=== PATIENT | female | born 1995 | race Caucasian/White ===

== ENCOUNTER → 2020-07-23 11:12 | Outpatient (BNVA) | payer SELFPAY | PROVIDERS: Visit Provider Family Medicine | DX: R53.83 Other fatigue (principal) | CPT/HCPCS: 80053; 83036; 84443; 85025 ==

== ENCOUNTER → 2021-12-17 08:21 | Outpatient (BNVA) | payer OTHER, SELFPAY | PROVIDERS: PCP Nurse Practitioner Family; Visit Provider Obstetrics & Gynecology | DX: Z32.01 Encounter for pregnancy test, result positive (principal) | CPT/HCPCS: 84702 ==

== ENCOUNTER → 2022-03-12 11:37 | Outpatient (BNVA) | payer OTHER, SELFPAY | PROVIDERS: Visit Provider Physician Assistant | DX: M54.6 Pain in thoracic spine; M54.2 Cervicalgia | CPT/HCPCS: 72050; 72070 ==

== ENCOUNTER → 2022-03-24 15:02 | Outpatient (BNVA) | payer OTHER, SELFPAY | PROVIDERS: PCP Nurse Practitioner; Visit Provider Nurse Practitioner | DX: Z20.822 Contact with and (suspected) exposure to COVID-19 (principal); U07.1 COVID-19 | CPT/HCPCS: 87426 ==

== ENCOUNTER 2024-07-20 20:32 | Emergency (ER) | payer OTHER, SELFPAY ==
[2024-07-20 20:36] VITALS: BP 123/92; PULSE 87; RESP 20; TEMP 36.7; O2SAT 98; BMI 37.8
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
[2024-07-20] MEDS: ketorolac 60 mg/2 mL INJ IM (22:25)
[2024-07-20 22:27] VITALS: BP 124/101; PULSE 74; RESP 18; O2SAT 98
[2024-07-20] MEDS: TRAMadol 50 mg Tablet 100 MG PO (22:30)
== END 2024-07-20 22:36 | disposition home or self-care (01) ==
PROVIDERS: Emergency Provider Emergency Medicine; PCP Nurse Practitioner
DX: Z04.1 Encounter for examination and observation following transport accident (principal); M79.18 Myalgia, other site; M79.642 Pain in left hand; M79.672 Pain in left foot; M25.572 Pain in left ankle and joints of left foot
CPT/HCPCS: 73130; 73610; 73630; 96372; 99284; J1885; J9999

== ENCOUNTER → 2025-04-09 15:15 | Outpatient (BNVA) | payer OTHER, SELFPAY | PROVIDERS: PCP Nurse Practitioner Family; Visit Provider Nurse Practitioner Family | DX: R30.0 Dysuria (principal); N39.0 Urinary tract infection, site not specified | CPT/HCPCS: 81000; 81003; 87086 ==